=== PATIENT | male | born 1995 | race Caucasian/White ===

== ENCOUNTER 2017-12-05 17:25 | Emergency (ER) | payer OTHER ==
[~2017-12-05] VITALS: Ht 177.8 cm; Wt 86.5 kg
[2017-12-05 17:28] VITALS: BP 122/79
== END 2017-12-05 19:08 | disposition home or self-care (01) ==
LOC: ED 19:02
DX: M25.532 Pain in left wrist (principal); M79.632 Pain in left forearm
CPT/HCPCS: 99284